=== PATIENT | female | born 1930 | race Caucasian/White ===

== ENCOUNTER 2016-12-03 18:45 | Observation (INO) | payer OTHER, BC ==
[2016-12-03 18:52] VITALS: BMI 24.5
--- NOTE | 2016-12-03 19:06 | PDOC ---
History of Present Illness <Symone Win - Last Filed: 12/03/16 19:00> - General History Source: Patient, Old Records Exam Limitations: No Limitations - History of Present Illness Initial Comments: 12/03/16 19:09 The patient is an 86 year old female, accompanied by daughterMOOSE to the emergency department today s/p allergic reaction. The patient states that she was eating spare ribs from a [place] when her lips and tongue began to swell. She noticed her hand become bright red. The patient states that one month ago she had a similar reaction after eating sushi. As per EMS, the patient was given epi, decadron, and benedryl en route to the ED. The patient has no other complaints at this time. <Raad Chapman - Last Filed: 12/03/16 19:09> <Malinda Lopez - Last Filed: 12/03/16 22:07> - General Chief Complaint: Allergic Reaction Stated Complaint: ALLERGIC REACTION Time Seen by Provider: 12/03/16 18:55 Past History - Past Medical History HTN: Yes Hypercholesterolemia: Yes Thyroid Disease: Yes - Suicide/Smoking/Psychosocial Hx Smoking History: Never smoked Have you smoked in the past 12 months: No Information on smoking cessation initiated: No Hx Alcohol Use: No Drug/Substance Use Hx: No Substance Use Type: None <Symone Win - Last Filed: 12/03/16 19:00> <Raad Chapman - Last Filed: 12/03/16 19:09> <Malinda Lopez - Last Filed: 12/03/16 22:07> - Past Medical History Allergies/Adverse Reactions: Allergies Allergy/AdvReac Type Severity Reaction Status Date / Time No Known Drug Allergies Allergy Verified 12/03/16 18:47 Home Medications: Ambulatory Orders Amlodipine Besylate 10 mg PO DAILY 12/03/16 Aspirin [Aspirin EC] 81 mg PO DAILY 12/03/16 Chlorthalidone 25 mg PO DAILY 12/03/16 Cholecalciferol (Vitamin D3) [Vitamin D3 -] 400 unit PO DAILY 12/03/16 Epinephrine (Epi-Pen 0.3MG) [Epipen 0.3MG -] 0.3 mg IM ASDIR #2 pens 12/03/16 Levothyroxine [Synthroid -] 50 mcg PO DAILY 12/03/16 Metoprolol Succinate [Toprol Xl] 50 mg PO DAILY 12/03/16 Prednisone [Deltasone -] 40 mg PO DAILY #5 tablet 12/03/16 Ramipril 10 mg PO DAILY 12/03/16 Review of Systems - Review of Systems Able to Perform ROS?: Yes Comments:: 12/03/16 19:09 GENERAL/CONSTITUTIONAL: No fever or chills. No weakness. HEAD, EYES, EARS, NOSE AND THROAT: (+) No change in vision. No ear pain or discharge. Tongue and lip swelling. GASTROINTESTINAL: No nausea, vomiting, diarrhea or constipation. GENITOURINARY: No dysuria, frequency, or change in urination. CARDIOVASCULAR: No chest pain or shortness of breath. RESPIRATORY: No cough, wheezing, or hemoptysis. MUSCULOSKELETAL: No joint or muscle swelling or pain. No neck or back pain. SKIN: No rash NEUROLOGIC: No headache, vertigo, loss of consciousness, or change in strength/ sensation. ENDOCRINE: No increased thirst. No abnormal weight change. HEMATOLOGIC/LYMPHATIC: No anemia, easy bleeding, or history of blood clots. ALLERGIC/IMMUNOLOGIC: (+) Bright red hands <Raad Chapman - Last Filed: 12/03/16 19:09> *Physical Exam - Vital Signs Last Vital Signs Temp Pulse Resp BP Pulse Ox 99 F 73 18 115/77 97 12/03/16 18:45 12/03/16 18:45 12/03/16 18:45 12/03/16 18:45 12/03/16 18:45 <Symone Win - Last Filed: 12/03/16 19:00> - Vital Signs Last Vital Signs Temp Pulse Resp BP Pulse Ox 99 F 73 18 115/77 97 12/03/16 18:45 12/03/16 18:45 12/03/16 18:45 12/03/16 18:45 12/03/16 18:45 - Physical Exam Comments: 12/03/16 19:10 GENERAL: Awake, alert, and fully oriented, in no acute distress HEAD: No signs of trauma EYES: PERRLA, EOMI, sclera anicteric, conjunctiva clear, No tongue or lip swelling. ENT: Auricles normal inspection, nares patent, Moist mucosa NECK: Normal ROM, supple, no lymphadenopathy, JVD, or masses LUNGS: Breath sounds equal, clear to auscultation bilaterally. No wheezes, and no crackles HEART: Regular rate and rhythm, normal S1 and S2, no murmurs, rubs or gallops ABDOMEN: Soft, nontender, normoactive bowel sounds. No guarding, no rebound. No masses EXTREMITIES: Normal range of motion, no edema. No clubbing or cyanosis. No cords, erythema, or tenderness NEUROLOGICAL: Normal speech SKIN: Warm, Dry, normal turgor, no rashes or lesions noted. No urticaria <Raad Chapman - Last Filed: 12/03/16 19:09> - Vital Signs Last Vital Signs Temp Pulse Resp BP Pulse Ox 99 F 73 18 115/77 97 12/03/16 18:45 12/03/16 18:45 12/03/16 18:45 12/03/16 18:45 12/03/16 18:45 <Malinda Lopez - Last Filed: 12/03/16 22:07> ED Treatment Course - LABORATORY CBC & Chemistry Diagram: 12/03/16 20:10 12/03/16 20:10 <Malinda Lopez - Last Filed: 12/03/16 22:07> Medical Decision Making - Medical Decision Making 12/03/16 19:00 86 yo F With h/o hypothyroid, htn , HLD, here with allergic reaction from spare ribs. has had similar one month ago. noted tongue swelling, and hoarseness, . was seen by EMS given decadron, benadryl and epe. feeling much better. per daughter voice sounded hoarse tongiht. on exam awake alert , no tongue swelling or lip swelling no stridor. skin no urticaria. lungs no wheezing. plan : observe. add pepcid. dc on steroids 3 days. and epe pen. <Symone Win - Last Filed: 12/03/16 19:00> - Medical Decision Making 12/03/16 19:55 I received pt on sign out. She comes with angioedema. States that her tongue swelled up. Now partially improved, however she is having difficulty speaking/ scratchy voice. Pt will be given another dose of Epi and another dose of benadryl and she will be admitted to the hospitalist team for observation. 12/03/16 22:07 Patient Name: TWYLA SANDERS THIS IS A PRELIMINARY REPORT FROM IMAGING ADMISSIONS CLERK EXAM: CT neck without contrast IMAGES: 213 EXAM DATE AND TIME: 2016-12-03 20:34:11 REASON FOR EXAM: 86 year-old woman with angioedema. COMPARISON: None. TECHNIQUE: CT scan of the neck: Axial images were obtained through the oral cavity, supra and infrahyoid neck to the thoracic inlet. FINDINGS: There is suggestion of mild thickening of the surface mucosal tissues in the false true vocal cords bilaterally. The remaining pharyngeal, laryngeal and tracheal airways are all widely patent. There is no evidence of parapharyngeal space displacement. The soft palate, posterior pharyngeal wall, and uvula all appear normal. The epiglottis, laryngeal vestibule, jose manuel- epiglottic folds, true and false vocal cords, paralaryngeal spaces and subglottic mucosal surfaces all appear normal. There is complete opacification of the right maxillary sinus by inspissated mucus. There is fluid filling the infundibular air passages of the right ostiomeatal complex. Also noted is right middle and anterior ethmoid sinusitis. There are thick atherosclerotic mural calcifications noted of the right and left carotid bulbs and proximal internal carotid arteries. There are no dominant masses within the neck. There is no evidence of adenopathy. The submandibular glands appear bilaterally symmetric and normal in size and density. The parotid glands also appear normal and symmetric in size contour and density, with no evidence of intra-parotid adenopathy. The thyroid lobes appear normal in size and contour. The cervical spine exhibit multilevel disc degeneration at the C3-4, C4-5, C5-6 and C6-7 levels. IMPRESSION: Suggestion of mild thickening of the surface mucosal tissues in the false true vocal cords bilaterally. Complete opacification of the right maxillary sinus by inspissated mucus. Ethmoid sinusitis. Thick atherosclerotic mural calcifications noted of the right and left carotid bulbs and proximal internal carotid arteries. THIS DOCUMENT HAS BEEN ELECTRONICALLY SIGNED <Malinda Lopez - Last Filed: 12/03/16 22:07> *DC/Admit/Observation/Transfer <Symone Win - Last Filed: 12/03/16 19:00> - Attestations Scribe Attestion: 12/03/16 19:10 Documentation prepared by Raad Chapman, acting as pesticide use medical coordinator for Symone Win MD. <Raad Chapman - Last Filed: 12/03/16 19:09> - Discharge Dispostion Admit: Yes <Malinda Lopez - Last Filed: 12/03/16 22:07> Diagnosis at time of Disposition: Allergic reaction, Angioedema - Discharge Dispostion Condition at time of disposition: Guarded - Prescriptions Prescriptions: Prednisone [Deltasone -] 40 mg PO DAILY #5 tablet Epinephrine (Epi-Pen 0.3MG) [Epipen 0.3MG -] 0.3 mg IM ASDIR #2 pens - Patient Instructions Printed Discharge Instructions: DI for General Allergic Reactions Additional Instructions: Take bendaryl 25 mg every 6 hrs as needed for itching. take prednisone 40 mg daily x 5 days. return for itching, tongue or lip swelling return immediately. use epe pen as directed for severe allergic reaction.
[2016-12-03] MEDS ORDERED: EPINEPHrine 1:1,000 1 MG/1 ML - 30ML VIAL (INJECTION) SQ ONE (19:56)
[2016-12-03] MEDS ORDERED: EPINEPHrine/PF 1 MG/1 ML (1:1,000) AMPULE ONE (20:00)
[2016-12-03 20:32] LABS: BASOPHIL 0.2 % (0-2.0); EOSINOPHIL 0.3 % (0-4.5); MCHC 33.5 g/dl (32.0-36.0); MEAN CELL VOLUME 89.4 fl (80-96); MEAN PLT VOLUME 8.2 fl (7.5-11.1); NEUTROPHILS 90.6 % (42.8-82.8); PLATELET COUNT 353 K/MM3 (134-434); RDW 12.9 % (11.6-15.6); WHITE BLOOD COUNT 17.9 K/mm3 (4.0-10.8)
[2016-12-03 20:40] LABS: ALBUMIN 3.8 g/dl (3.5-5.0); ALK PHOS 78 U/L (32-92); ANION GAP 11 (8-16); BILIRUBIN,TOTAL 0.2 mg/dl (0.2-1.0); CALCIUM 8.7 mg/dl (8.4-10.2); CO2 25 mmol/L (22-28); CREATININE 1.1 mg/dl (0.6-1.3); GLUCOSE,RANDOM 195 mg/dl (74-106); SGOT/AST 19 U/L (10-42); SGPT/ALT 17 U/L (10-40); TOT PROT 6.8 g/dl (6.4-8.3)
--- NOTE | 2016-12-03 21:07 | HP ---
CHIEF COMPLAINT: Allergic Reaction- Tongue, Lips, Difficulty Swallowing PCP: Doctor not on Staff HISTORY OF PRESENT ILLNESS: This is a 86 y/o woman with a past medical history HTN, HLD, Hypothroidism. Who presents to the ED via ambulance with sudden onset of lip and tongue swelling, with difficulty swallowing after eating spare ribs. Patient reports sampling buffalo chicken spread at [employer] 3 hrs prior. Patient reports having a similar episode after eating Sushi weeks to months ago. Patient has not followed up with an Talent Acquisition Project Manager for testing. Patient denies familial hx HAE. Patient denies fever, chills, SOB, CP, AP, N/V/D, constipation, dysuria. ER course was notable for: (1) WBC 12.3 (2) Na 129 (3) Glucose 236 Recent Travel: None PAST MEDICAL HISTORY: HTN HLD Hypothyroidism PAST SURGICAL HISTORY: Social History: Smoking: Never Alcohol: None Drugs: None Lives alone, independent Family History: Allergies No Known Drug Allergies Allergy (Verified 12/03/16 18:47) HOME MEDICATIONS: Home Medications Medication Instructions Recorded Amlodipine Besylate 10 mg PO DAILY 12/03/16 Aspirin [Aspirin EC] 81 mg PO DAILY 12/03/16 Chlorthalidone 25 mg PO DAILY 12/03/16 Cholecalciferol (Vitamin D3) 400 unit PO DAILY 12/03/16 [Vitamin D3 -] Epinephrine (Epi-Pen 0.3MG) 0.3 mg IM ASDIR #2 pens 12/03/16 [Epipen 0.3MG -] Levothyroxine [Synthroid -] 50 mcg PO DAILY 12/03/16 Metoprolol Succinate [Toprol Xl] 50 mg PO DAILY 12/03/16 Prednisone [Deltasone -] 40 mg PO DAILY #5 tablet 12/03/16 Ramipril 10 mg PO DAILY 12/03/16 REVIEW OF SYSTEMS CONSTITUTIONAL: Absent: fever, chills, diaphoresis, generalized weakness, malaise, loss of appetite, weight change HEENT: tongue swelling, lip swelling, difficulty swallowing Absent: rhinorrhea, nasal congestion, throat pain, throat swelling, mouth swelling, ear pain, eye pain, visual changes CARDIOVASCULAR: Absent: chest pain, syncope, palpitations, irregular heart rate, lightheadedness , peripheral edema RESPIRATORY: Absent: cough, shortness of breath, dyspnea with exertion, orthopnea, wheezing, stridor, hemoptysis GASTROINTESTINAL: Absent: abdominal pain, abdominal distension, nausea, vomiting, diarrhea, constipation, melena, hematochezia GENITOURINARY: Absent: dysuria, frequency, urgency, hesitancy, hematuria, flank pain, genital pain MUSCULOSKELETAL: Absent: myalgia, arthralgia, joint swelling, back pain, neck pain SKIN: red hand Absent: rash, itching, pallor HEMATOLOGIC/IMMUNOLOGIC: Absent: easy bleeding, easy bruising, lymphadenopathy, frequent infections ENDOCRINE: Absent: unexplained weight gain, unexplained weight loss, heat intolerance, cold intolerance NEUROLOGIC: Absent: headache, focal weakness or paresthesias, dizziness, unsteady gait, seizure, mental status changes, bladder or bowel incontinence PSYCHIATRIC: Absent: anxiety, depression, suicidal or homicidal ideation, hallucinations. PHYSICAL EXAMINATION Vital Signs - 24 hr 12/03/16 18:45 Temperature 99 F Pulse Rate 73 Respiratory 18 Rate Blood Pressure 115/77 O2 Sat by Pulse 97 Oximetry (%) GENERAL: Awake, alert, and fully oriented, in no acute distress. HEAD: Normal with no signs of trauma. EYES: Pupils equal, round and reactive to light, extraocular movements intact, sclera anicteric, conjunctiva clear. No lid lag. EARS, NOSE, THROAT: Ears normal, nares patent, oropharynx clear without exudates. Dry mucous membranes. NECK: Normal range of motion, supple without lymphadenopathy, JVD, or masses. LUNGS: Breath sounds equal, clear to auscultation bilaterally. No wheezes, and no crackles. No accessory muscle use. HEART: Regular rate and rhythm, normal S1 and S2 without murmur, rub or gallop. ABDOMEN: Soft, nontender, not distended, normoactive bowel sounds, no guarding, no rebound, no masses. No hepatomegaly or splenomegaly. MUSCULOSKELETAL: Normal range of motion at all joints. No bony deformities or tenderness. No CVA tenderness. UPPER EXTREMITIES: 2+ pulses, warm, well-perfused. No cyanosis. No clubbing. No peripheral edema. LOWER EXTREMITIES: 2+ pulses, warm, well-perfused. No calf tenderness. No peripheral edema. NEUROLOGICAL: Cranial nerves II-XII intact. Normal speech. Gait not observed PSYCHIATRIC: Cooperative. Good eye contact. Appropriate mood and affect. SKIN: Warm, dry, normal turgor, no rashes or lesions noted, normal capillary refill. Laboratory Results - last 24 hr 12/03/16 12/03/16 20:10 20:10 WBC 17.9 H RBC 4.31 Hgb 12.9 Hct 38.5 MCV 89.4 MCH 30.0 MCHC 33.5 RDW 12.9 Plt Count 353 MPV 8.2 Neutrophils % 90.6 H Lymphocytes % 6.8 L Monocytes % 2.1 L Eosinophils % 0.3 Basophils % 0.2 Sodium 135 L Potassium 3.0 L Chloride 99 Carbon Dioxide 25 Anion Gap 11 BUN 32 H Creatinine 1.1 Creat Clearance w eGFR 47.32 Random Glucose 195 H Calcium 8.7 Total Bilirubin 0.2 AST 19 ALT 17 Alkaline Phosphatase 78 Total Protein 6.8 Albumin 3.8 ASSESSMENT/PLAN: This is a 86 y/o woman with a PMHx of: HTN, HLD, Hypothyroidism. Placed on Tele Observation for Angioedema, Allergic Reaction for further evaluation of their emergent condition. Plan: 1. Angioedema - Likely secondary to mast cell vs bradykinin vs histamine mediated vs HAE - Patient reports having a lesser attack several months ago after eating sushi - Given Epi, Decadron, Benadryl, Pepcid in ED, EMS with favorable response - Tele monitoring - Continue glucocorticoid with taper - Benadryl prn - Keep NPO tonight, reassess in am - f/u with Talent Acquisition Project Manager for RAST Testing - d/c with Epi Pen - d/c GALI - CRP, TSH, CBC, BMP in am - Consider C4 for HAE 2. Allergic Reaction - See above 3. Hypertension - Hold BB, CCB for now secondary to hypotensive on arrival, airway precautions - d/c Ramipril secondary to Angioedema - Monitor BP - Monitor renal function 4. Hypokalemia - Likely secondary to diuretics - Repleted with KCL in ED - Will hold Chlorthalidone, no evidence of fluid overload on exam - Repeat BMP in am - EKG- pending 5. Hyperlipidemia - No home med listed will review in am 6. Hypothyroidism - TSH in am - Continue Levothyroxine 7. FEN - D51/2NS@42ml/hr - K repleted, continue to monitor - NPO 8. DVT Prophylaxis - OOB - SCDs - Consider ACs if LOS > 48hrs Code Status: Full Code Problem List - Problem (1) Allergic reaction Code(s): T78.40XA - ALLERGY, UNSPECIFIED, INITIAL ENCOUNTER (2) Angioedema Code(s): T78.3XXA - ANGIONEUROTIC EDEMA, INITIAL ENCOUNTER (3) Hyponatremia Code(s): E87.1 - HYPO-OSMOLALITY AND HYPONATREMIA (4) HTN (hypertension) Code(s): I10 - ESSENTIAL (PRIMARY) HYPERTENSION (5) Hypothyroidism Code(s): E03.9 - HYPOTHYROIDISM, UNSPECIFIED (6) HLD (hyperlipidemia) Code(s): E78.5 - HYPERLIPIDEMIA, UNSPECIFIED Visit type - Emergency Visit Emergency Visit: Yes ED Registration Date: 12/03/16 Care time: The patient presented to the Emergency Department on the above date and was hospitalized for further evaluation of their emergent condition. - New Patient This patient is new to me today: Yes Date on this admission: 12/03/16 - Critical Care Critical Care patient: No
[2016-12-03] MEDS ORDERED: POTASSIUM CHLORIDE TABS 20 MEQ TABLET.ER (FP) PO ONE ×2 (21:50→22:03)
[2016-12-03] MEDS ORDERED: MAGNESIUM SULF 50% (8.12 MEQ/2 ML-1 GM VIAL) IVPB ONE (21:56)
[2016-12-03] MEDS: DEXTROSE 5%-0.45% SALINE 1,000 ML IV SCH (22:14)
[2016-12-04] MEDS: methylPREDNISolone NA SUCC 40 MG/1 ML VIAL IVPUSH SCH ×2 (03:00→09:09)
[2016-12-04] MEDS: LEVOTHYROXINE NA 50 MCG TABLET (FP) PO SCH (06:39)
[2016-12-04 09:08] LABS: MCHC 34.2 g/dl (32.0-36.0); MEAN CELL VOLUME 90.7 fl (80-96); MEAN PLT VOLUME 8.4 fl (7.5-11.1); PLATELET COUNT 320 K/MM3 (134-434); RDW 12.8 % (11.6-15.6); WHITE BLOOD COUNT 8.2 K/mm3 (4.0-10.8)
[2016-12-04 09:23] LABS: ANION GAP 8 (8-16); CO2 25 mmol/L (22-28); CREATININE 0.8 mg/dl (0.6-1.3); GLUCOSE,RANDOM 161 mg/dl (74-106)
[2016-12-04 10:56] LABS: PLATELET ESTIMATE ADEQUATE (NORMAL)
[2016-12-04 11:19] LABS: C-REACTIVE PROTEIN 0.3 MG/DL (0.00-0.3)
[2016-12-04 11:23] LABS: THYROID STIMULATING HORMONE 2.07 uIU/ml (0.358-3.74)
--- NOTE | 2016-12-04 12:57 | PN ---
Physical Exam: SUBJECTIVE: Patient seen and examined Pt c/o mild throat irritation,denies dysphagia/dysphasia,swollen tongue, cp, sob palpitations,abdominal pain,N/V/D or urinary symptoms. OBJECTIVE: Vital Signs Period Temp Pulse Resp BP Sys/Mcneil Pulse Ox Last 24 Hr 98.4 F-98.7 F 62-62 18-20 106-108/58-59 GENERAL: The patient is awake, alert, and fully oriented, in no acute distress. HEAD: Normal with no signs of trauma. EYES: PERRL, extraocular movements intact, sclera anicteric, conjunctiva clear. No ptosis. ENT: Ears normal, nares patent, oropharynx clear without exudates, moist mucous membranes. NECK: Trachea midline, full range of motion, supple. LUNGS: Breath sounds equal, clear to auscultation bilaterally, no wheezes, no crackles, no accessory muscle use. HEART: Regular rate and rhythm, S1, S2 without murmur, rub or gallop. ABDOMEN: Soft, nontender, nondistended, normoactive bowel sounds, no guarding, no rebound, no hepatosplenomegaly, no masses. EXTREMITIES: 2+ pulses, warm, well-perfused, no edema. NEUROLOGICAL: Cranial nerves II through XII grossly intact. Normal speech, gait not observed. PSYCH: Normal mood, normal affect. SKIN: Warm, dry, normal turgor, no rashes or lesions noted Laboratory Results - last 24 hr 12/04/16 12/04/16 05:30 06:30 WBC 8.2 D RBC 3.95 Hgb 12.3 Hct 35.8 MCV 90.7 MCH 31.0 MCHC 34.2 RDW 12.8 Plt Count 320 MPV 8.4 Neutrophils % No Result Required. Neutrophils % (Manual) 97 H* Band Neuts % (Manual) 1 Lymphocytes % No Result Required. Lymphocytes % (Manual) 2 L Platelet Estimate Adequate Sodium 134 L Potassium 3.9 D Chloride 101 Carbon Dioxide 25 Anion Gap 8 BUN 25 H D Creatinine 0.8 D Random Glucose 161 H Calcium 9.0 C-Reactive Protein 0.3 TSH 2.07 Active Medications Generic Name Dose Route Start Last Admin Trade Name Freq PRN Reason Stop Dose Admin Dextrose/Sodium Chloride 1,000 mls @ 42 mls/hr 12/03/16 21:15 12/03/16 22:14 D5-1/2ns - IV 42 mls/hr ASDIR LIANE Administration Levothyroxine Sodium 50 mcg 12/04/16 07:00 12/04/16 06:39 Synthroid - PO 50 mcg DAILY@0700 LIANE Administration Methylprednisolone Sodium Succinate 40 mg 12/04/16 02:00 12/04/16 09:09 Solu-Medrol - IVPUSH 40 mg Q8H-IV LIANE Administration CT Neck:Suggestion of mild thickening of the surface mucosal tissues in the false true vocal cords bilaterally.Complete opacification of the right maxillary sinus by inspissated mucus. Ethmoid sinusitis.Thick atherosclerotic mural calcifications noted of the right and left carotid bulbs and proximal internal carotid arteries. CxR: No acute pathology ASSESSMENT/PLAN: This is a 86 y/o woman with a past medical history HTN, HLD, Hypothroidism. Who presents to the ED via ambulance with sudden onset of lip and tongue swelling, with difficulty swallowing after eating spare ribs. Patient reports sampling buffalo chicken spread at [employer] 3 hrs prior. Patient reports having a similar episode after eating Sushi weeks to months ago. Patient has not followed up with an Printed Circuit Board Preassembler for testing. Patient denies familial hx HAE. *Angioedema: Likely secondary to mast cell vs bradykinin vs histamine mediated vs HAE - s/p Epi, Decadron, Benadryl, Pepcid in ED, - Tele monitoring- no arrhythmias - Continue glucocorticoid with taper - Benadryl prn and added pepcid - clears yessy well, will advance diet as tolerated - f/u with Printed Circuit Board Preassembler for RAST Testing a * Hypertension- BP stable off home meds - will cont to hold off on BB, CCB for now and monitor - d/c Ramipril secondary to Angioedema - Monitor BP - Monitoring renal functions *Hypokalemia-resolved -s/p replacement - EKG- SR with PVC's, non-specific T wave changes *Hyperlipidemia - No home med listed will review in am * Hypothyroidism - TSH i- wnl - Continue Levothyroxine * FEN - D51/2NS@42ml/hr -advancing diet *DVT Prophylaxis- OOB- SCDs- Consider ACs if LOS > 48hrs Code Status: Full Code Visit type - Emergency Visit Emergency Visit: Yes ED Registration Date: 12/03/16 Care time: The patient presented to the Emergency Department on the above date and was hospitalized for further evaluation of their emergent condition. - New Patient This patient is new to me today: Yes Date on this admission: 12/04/16 - Critical Care Critical Care patient: No
[2016-12-04] MEDS ORDERED: PT OWN MED DRAWER 7, Y5N ONE (17:23)
[2016-12-04] MEDS: methylPREDNISolone NA SUCC 125 MG/2 ML VIAL IVPUSH SCH (21:18)
[2016-12-04] MEDS: FAMOTIDINE 20 MG TABLET PO SCH (21:18)
[2016-12-04] MEDS: DEXTROSE 5%-0.45% SALINE 1,000 ML IV SCH (21:18)
[2016-12-05 05:52] VITALS: BP 115/62; PULSE 52; TEMP 97.9
[2016-12-05] MEDS: LEVOTHYROXINE NA 50 MCG TABLET (FP) PO SCH (06:32)
[2016-12-05] MEDS: FAMOTIDINE 20 MG TABLET PO SCH (09:08)
[2016-12-05] MEDS: methylPREDNISolone NA SUCC 125 MG/2 ML VIAL IVPUSH SCH (09:09)
--- NOTE | 2016-12-05 11:30 | DS ---
Physical Exam: SUBJECTIVE: Patient seen and examined OBJECTIVE:This is a 86 y/o woman with a past medical history HTN, HLD, Hypothroidism. Who presents to the ED via ambulance with sudden onset of lip and tongue swelling, with difficulty swallowing after eating spare ribs. Patient reports sampling buffalo chicken spread at [employer] 3 hrs prior. Patient reports having a similar episode after eating Sushi weeks to months ago. Patient has not followed up with an Gis Consultant for testing. Patient denies familial hx HAE. Patient denies fever, chills, SOB, CP, AP, N/V/D, constipation , dysuria. ER course was notable for: (1) WBC 12.3 (2) Na 129 (3) Glucose 236 Vital Signs Period Temp Pulse Resp BP Sys/Mcneil Pulse Ox Last 24 Hr 97.9 F-98.7 F 52-70 18-20 115-142/62-73 100-100 PHYSICAL EXAM GENERAL: The patient is awake, alert, and fully oriented, in no acute distress. HEAD: Normal with no signs of trauma. EYES: PERRL, extraocular movements intact, sclera anicteric, conjunctiva clear. ENT: Ears normal, nares patent, oropharynx clear without exudates, moist mucous membranes. NECK: Trachea midline, full range of motion, supple. LUNGS: Breath sounds equal, clear to auscultation bilaterally, no wheezes, no crackles, no accessory muscle use. HEART: Regular rate and rhythm, S1, S2 without murmur, rub or gallop. ABDOMEN: Soft, nontender, nondistended, normoactive bowel sounds, no guarding, no rebound, no hepatosplenomegaly, no masses. EXTREMITIES: 2+ pulses, warm, well-perfused, no edema. NEUROLOGICAL: Cranial nerves II through XII grossly intact. Normal speech, gait not observed. PSYCH: Normal mood, normal affect. SKIN: Warm, dry, normal turgor, no rashes or lesions noted. LABS HOSPITAL COURSE: Date of Admission:12/03/16 Date of Discharge: 12/05/16 Minutes to complete discharge: 45 Discharge Summary Reason For Visit: ALLERGIC RX, ANGIOEDMA Current Active Problems Allergic reaction (Acute) Angioedema (Acute) HLD (hyperlipidemia) (Acute) HTN (hypertension) (Acute) Hyponatremia (Acute) Hypothyroidism (Acute) Condition: Guarded - Instructions Diet, Activity, Other Instructions: you were admitted to the hospital for angiodema due to a allergic reaction please discontinue ramipril and avoid seafood take prednisone daily as prescribed with food continue taking pepcid while you are taking prednisone Take bendaryl 25 mg every 6 hrs as needed for itching. use epi pen as directed for severe allergic reaction. please followup with the buckle sewer machine within 3 weeks please follow up with your primary care physician within 2 weeks if any new or persistent symptoms develop please return to the emergency department Disposition: HOME - Home Medications Comprehensive Discharge Medication List: Ambulatory Orders Amlodipine Besylate 10 mg PO DAILY 12/03/16 Aspirin [Aspirin EC] 81 mg PO DAILY 12/03/16 Chlorthalidone 25 mg PO DAILY 12/03/16 Cholecalciferol (Vitamin D3) [Vitamin D3 -] 400 unit PO DAILY 12/03/16 Epinephrine (Epi-Pen 0.3MG) [Epipen 0.3MG -] 0.3 mg IM ASDIR #2 pens 12/03/16 Levothyroxine [Synthroid -] 50 mcg PO DAILY 12/03/16 Metoprolol Succinate [Toprol Xl] 50 mg PO DAILY 12/03/16 Ramipril 10 mg PO BID 12/03/16
--- NOTE | 2016-12-06 18:26 | EKG ---
Test Reason : Blood Pressure : / mmHG Vent. Rate : 059 BPM Atrial Rate : 059 BPM P-R Int : 182 ms QRS Dur : 090 ms QT Int : 474 ms P-R-T Axes : 031 005 -24 degrees QTc Int : 469 ms SINUS BRADYCARDIA WITH OCCASIONAL PREMATURE VENTRICULAR COMPLEXES ABNORMAL ECG NO PREVIOUS ECGS AVAILABLE CLINICAL CORRELATION IS RECOMMENDED REPEAT ECG IF INDICATED. Confirmed by AMBREEN NOLASCO MD ([id number]) on 12/06/2016 6:26:38 PM Referred By: TRINI BILLINGS Confirmed By:AMBREEN NOLASCO MD
== END 2016-12-05 13:10 | disposition home or self-care (01) ==
LOC: FER 18:45 → FM/S 22:12
PROVIDERS: ADMIT Internal Medicine; ATTEND Nurse Practitioner Family
PROC: 3E033GC Introduction of Other Therapeutic Substance into Peripheral Vein, Percutaneous Approach (ICD-10-PCS; principal; 2016-12-03)
PROC: 3E013GC Introduction of Other Therapeutic Substance into Subcutaneous Tissue, Percutaneous Approach (ICD-10-PCS; 2016-12-03)
DX: T78.3XXA Angioneurotic edema, initial encounter (principal); T78.40XA Allergy, unspecified, initial encounter; E87.1 Hypo-osmolality and hyponatremia; I10 Essential (primary) hypertension; E03.9 Hypothyroidism, unspecified; E78.5 Hyperlipidemia, unspecified; Z79.82 Long term (current) use of aspirin
CPT/HCPCS: 36415; 70490-TC; 71010-TC; 80048; 80053; 84443; 85025; 86140; 93005; 93010; 96372; 96374; 99283-25; G0378